=== PATIENT | female | born 1985 | race American Indian/Alaskan Native ===

== ENCOUNTER 2017-10-17 22:53 | Emergency (ER) | payer OTHER ==
[2017-10-17 23:39] VITALS: BP 137/85
--- NOTE | 2017-10-18 00:33 | Emergency Department Report ---
ED Lower Extremity HPI - General Chief Complaint: Medical Clearance Stated Complaint: DRUG TEST Time Seen by Provider: 10/18/17 00:18 Source: patient Mode of arrival: Ambulatory Limitations: No Limitations - History of Present Illness Initial Comments: This is a 32-year-old male nontoxic, well nourished in appearance, no acute signs of distress presents to the ED with c/o of left knee pain status post work related injury. Patient stated is unknown how she developed the abrasion and pain. Patient stated that she did not have any trauma to the head or any other extremities. Patient denies any joint redness, joint swelling, fever, chills, nausea, vomiting, chest pain or shortness breath. Patient denies abnormal or decreased gait. Patient stated she needs a drug screen for work related injury. Patient denies any allergies or PMH. MD Complaint: knee injury Injury: Knee: Left Place: work Severity: mild Severity scale (0 -10): 8 Improves With: immobilization Worsens With: movement, palpation Associated Symptoms: ambulatory. denies: snap/pop sensation, swelling, numbness , tingling, unable to bear weight, able to partially bear weight - Related Data Previous Rx's Medication Instructions Recorded Last Taken Type Ibuprofen [Motrin] 600 mg PO Q8H PRN #30 tablet 10/18/17 Unknown Rx Allergies Allergy/AdvReac Type Severity Reaction Status Date / Time No Known Allergies Allergy Unverified 10/17/17 23:39 ED Review of Systems ROS: Stated complaint: DRUG TEST Other details as noted in HPI Constitutional: denies: chills, fever Eyes: denies: eye pain, eye discharge, vision change ENT: denies: ear pain, throat pain Respiratory: denies: cough, shortness of breath, wheezing Cardiovascular: denies: chest pain, palpitations Endocrine: no symptoms reported Gastrointestinal: denies: abdominal pain, nausea, diarrhea Genitourinary: denies: urgency, dysuria, discharge Musculoskeletal: arthralgia. denies: back pain, joint swelling Skin: denies: rash, lesions Neurological: denies: headache, weakness, paresthesias Psychiatric: denies: anxiety, depression Hematological/Lymphatic: denies: easy bleeding, easy bruising ED Past Medical Hx - Past Medical History Previous Medical History?: No - Surgical History Past Surgical History?: No - Social History Smoking Status: Current Every Day Smoker Substance Use Type: None - Medications Home Medications: Home Medications Medication Instructions Recorded Confirmed Last Taken Type Ibuprofen [Motrin] 600 mg PO Q8H PRN #30 tablet 10/18/17 Unknown Rx ED Physical Exam - General Limitations: No Limitations General appearance: alert, in no apparent distress - Head Head exam: Present: atraumatic, normocephalic - Eye Eye exam: Present: normal appearance Pupils: Present: normal accommodation - ENT ENT exam: Present: normal exam, mucous membranes moist - Neck Neck exam: Present: normal inspection, full ROM. Absent: tenderness, meningismus - Respiratory Respiratory exam: Present: normal lung sounds bilaterally. Absent: respiratory distress - Cardiovascular Cardiovascular Exam: Present: regular rate, normal rhythm. Absent: systolic murmur, diastolic murmur, rubs, gallop - GI/Abdominal GI/Abdominal exam: Present: soft, normal bowel sounds - Extremities Exam Extremities exam: Present: normal inspection, full ROM, normal capillary refill. Absent: tenderness, pedal edema, joint swelling, calf tenderness - Expanded Lower Extremity Exam Left Hip exam: Present: normal inspection, full ROM. Absent: tenderness, swelling Upper Leg exam: Present: normal inspection, full ROM. Absent: tenderness, swelling Knee exam: Present: normal inspection, full ROM, abrasion, full knee extension. Absent: tenderness, swelling, laceration, ecchymosis, deformity, crepidus, dislocation, erythema, effusion, pain w/ pronation/supination, posterior draw sign, pain/laxity with valgus, pain/laxity with varus Lower Leg exam: Present: normal inspection, full ROM. Absent: tenderness, swelling Ankle exam: Present: normal inspection, full ROM. Absent: tenderness, swelling Foot/Toe exam: Present: normal inspection, full ROM. Absent: tenderness, swelling Neuro vascular tendon exam: Present: no vascular compromise. Absent: pulse deficit, abnormal cap refill, motor deficit, sensory deficit, tendon deficit, extremity cold to touch, pallor, abnormal 2-point discrimination, decreased fine /light touch, foot drop, peroneal nerve deficit, significant pain with passive ROM of distal joint Gait: Positive: observed and normal - Back Exam Back exam: Present: normal inspection, full ROM. Absent: tenderness - Neurological Exam Neurological exam: Present: alert, oriented X3, normal gait - Psychiatric Psychiatric exam: Present: normal affect, normal mood - Skin Skin exam: Present: warm, dry, intact, normal color. Absent: rash ED Course Vital Signs 10/17/17 23:34 Temperature 99.1 F Pulse Rate 96 H Blood Pressure 137/85 O2 Sat by Pulse 98 Oximetry - Reevaluation(s) Reevaluation #1: 10/18/17 00:31 Patient is speaking in full sentences with no signs of distress noted. ED Lower Extremity MDM - Medical Decision Making This is a 32-year-old female that presents with left knee strain. Patient is stable and was examined by me. I referred patient to an orthopedic doctor for further evaluation for possible MRI. X-ray was ordered but patient refused as she stated she has no pain and just needs a drug screen done for work. Lab has been contacted for workers comp drug panel from urine and blood. Patient does have normal gait with no tenderness and no joint swelling. No ecchymosis. no joint redness or swelling. Not warm to touch. No signs of cellulites present. Upon exam no knee tenderness of decreased ROM. Patient was instructed to RICE therapy. Patient is discharged with Motrin. At time of discharge, the patient does not seem toxic or ill in appearance. No acute signs of distress noted. Patient agrees to discharge treatment plan of care. No further questions noted by the patient. Critical care attestation.: If time is entered above; I have spent that time in minutes in the direct care of this critically ill patient, excluding procedure time. ED Disposition Clinical Impression: Encounter for drug screening Strain of left knee Qualifiers: Encounter type: initial encounter Qualified Code(s): S86.912A - Strain of unspecified muscle(s) and tendon(s) at lower leg level, left leg, initial encounter Disposition: - TO HOME OR SELFCARE Is pt being admited?: No Does the pt Need Aspirin: No Condition: Stable Instructions: Ibuprofen (By mouth), Knee Pain (ED), RICE Therapy (ED) Additional Instructions: Follow-up with a orthopedic doctor in 3-5 days or if symptoms worsen and continue return to emergency room as soon as possible. Prescriptions: Ibuprofen [Motrin] 600 mg PO Q8H PRN #30 tablet PRN Reason: Pain Referrals: PRIMARY CAREMD [Primary Care Provider] - 3-5 Days EDNA DAVIS MD [Staff Physician] - 3-5 Days [facility] [Outside] - 3-5 Days [facility] [Outside] - 3-5 Days Forms: Work/School Release Form(ED)
== END 2017-10-18 01:17 | disposition home or self-care (01) ==
LOC: ED 22:53
DX: S86.912A Strain of unspecified muscle(s) and tendon(s) at lower leg level, left leg, initial encounter (principal); F17.200 Nicotine dependence, unspecified, uncomplicated; Z13.89 Encounter for screening for other disorder; X58.XXXA Exposure to other specified factors, initial encounter; Y93.89 Activity, other specified; Y99.8 Other external cause status; Y92.89 Other specified places as the place of occurrence of the external cause
CPT/HCPCS: 99281

== ENCOUNTER 2018-09-10 21:26 | Emergency (ER) | payer MEDICAID ==
--- NOTE | 2018-09-10 21:43 | Emergency Department Report ---
Blank Doc - Documentation Documentation: This is a 33-year-old female that presents wit URI symptoms. This initial assessment/diagnostic orders/clinical plan/treatment(s) is/are subject to change based on patient's health status, clinical progression and re- assessment by fellow clinical providers in the ED. Further treatment and workup at subsequent clinical providers discretion. Patient/guardians urged not to elope from the ED as their condition may be serious if not clinically assessed and managed. Initial orders include: 1- Patient sent to [facility] for further evaluation and treatment 2- CXR
[2018-09-10 21:45] VITALS: BP 114/78
--- NOTE | 2018-09-10 22:41 | XRay Report ---
PROCEDURE: XR CHEST ROUTINE 2V TECHNIQUE: PA and lateral chest radiographs were obtained. HISTORY: cough COMPARISONS: None. FINDINGS: Heart: Normal. Mediastinum/Vessels: Normal. Lungs/Pleural space: No infiltrate, effusion, or pneumothorax. Bony thorax: No acute osseous abnormality. IMPRESSION: No pulmonary infiltrates are identified. This document is electronically signed by Lamar Sethi MD., September 10 2018 10:39:33 PM ET
--- NOTE | 2018-09-11 00:48 | Emergency Department Report ---
Minor Respiratory - HPI Chief Complaint: Nausea/Vomiting/Diarrhea Stated Complaint: SWEATS DIZZINES HEADACHE WEAKNESS Time Seen by Provider: 09/10/18 21:42 Duration: 6 days Pain Location: Nose, Chest Severity: moderate Minor Respiratory: Yes Rhinorrhea, Yes Able to Tolerate Fluids, Yes Cough, Yes Sick Contacts, Yes Chest Pain (chest discomfort with cough), Yes Fever, No Sore Throat, No Ear Pain, No Hemoptysis, No Shortness of Breath Other History: This is a 33-year-old -[place] female who presents to the emergency room with upper respiratory symptoms for 6 days. Patient reports myalgia, fever, chills, diarrhea, weakness. Patient states she is currently taken TheraFlu with no improvement of symptoms. She believes she caught so mething from a coworker and can't get rid of it. Patient reports cough is worse with laying down causing chest discomfort. Patient states myalgia has resolved but continued to have of the symptoms. She denies nausea, vomiting, abdominal pain. ED Review of Systems ROS: Stated complaint: SWEATS DIZZINES HEADACHE WEAKNESS Other details as noted in HPI Constitutional: chills, fever, malaise ENT: congestion. denies: ear pain, throat pain Respiratory: cough. denies: shortness of breath, wheezing Cardiovascular: denies: chest pain (chest discomfort with cough), palpitations Gastrointestinal: diarrhea. denies: abdominal pain, nausea Musculoskeletal: myalgia. denies: back pain, joint swelling, arthralgia Skin: denies: rash, lesions Neurological: denies: headache, weakness, paresthesias Psychiatric: denies: anxiety, depression ED Past Medical Hx - Past Medical History Previous Medical History?: No - Surgical History Past Surgical History?: Yes Additional Surgical History: - Social History Smoking Status: Current Every Day Smoker Substance Use Type: Alcohol - Medications Home Medications: Home Medications Medication Instructions Recorded Confirmed Last Taken Type Ibuprofen [Motrin] 600 mg PO Q8H PRN #30 tablet 10/18/17 Unknown Rx Benzonatate [Tessalon Perles] 100 mg PO Q8HR PRN #30 capsule 09/11/18 Unknown Rx Cetirizine HCl [Zyrtec] 10 mg PO DAILY #30 tablet 09/11/18 Unknown Rx Fluticasone [Flonase] 1 spray NS QDAY #1 bottle 09/11/18 Unknown Rx Minor Respiratory Exam - Exam General: Vital signs noted. No distress. Alert and acting appropriately. HEENT: Yes Pharyngeal Erythema (erythematous posterior pharynx, uvula midline), Yes Moist Mucous Membranes, Yes Rhinorrhea (turbinates congested with clear discharge), No Pharyngeal Exudates, No Conjuctival Injection, No Frontal Tenderness, No Maxillary Tenderness Ear: Neither TM Bulge, Neither TM Erythema, Neither EAC Pain, Neither EAC Discharge Neck: Yes Supple, No Adenopathy Lungs: Yes Good Air Exchange, Yes Cough, No Wheezes, No Ronchi, No Stridor, No Labored Respirations, No Retractions, No Use of Accessory Muscles, No Other Abnormal Lung Sounds Heart: Yes Regular, No Murmur Abdomen: Yes Normal Bowel Sounds, No Tenderness, No Peritoneal Signs Skin: No Rash, No Edema Neurologic: Alert and oriented, no deficits. Musculoskeletal: Unremarkable. ED Course Vital Signs 09/10/18 21:43 Temperature 99 F Pulse Rate 97 H Respiratory 18 Rate Blood Pressure 114/78 O2 Sat by Pulse 98 Oximetry ED Medical Decision Making - Medical Decision Making Patient examined by me and stable. No distress noted. Vitals normal. A chest x-ray was obtained and no acute cardiopulmonary findings. Symptoms are susceptible of viral syndrome or influenza. Patient has symptoms for one week, not indicated to test for influenza. She is instructed to take Tylenol or ibuprofen for aches and pains, to drink a lot of liquids to stay home and rest. Start flonase, Tessalon Perles, cetirizine, and ibuprofen. Discharged home stable. Educated on care for viral syndrome. She was given a note to return to work in 3 days. Follow up with Primary Care Provider in 2-3 days. She will return to the emergency room if he does not get better as discussed. Critical care attestation.: If time is entered above; I have spent that time in minutes in the direct care of this critically ill patient, excluding procedure time. ED Disposition Clinical Impression: Viral syndrome, Cough in adult Disposition: DC-01 TO HOME OR SELFCARE Is pt being admited?: No Does the pt Need Aspirin: No Condition: Stable Instructions: Viral Syndrome (ED), Influenza (ED) Additional Instructions: Symptoms are most likely coming from for infection. These infections typically do not give antibiotics. Take ibuprofen every 6 hours alternated with Tylenol every 4 hours pain. You may not feel like eating which is to be expected. Try eating a bland diet as tolerated. Wash hands frequently. F/U with Primary Care Provider. Return to ER if fever, SOB, or difficulty breathing after 48 hours of supportive care. Prescriptions: Fluticasone [Flonase] 1 spray NS QDAY #1 bottle Benzonatate [Tessalon Perles] 100 mg PO Q8HR PRN #30 capsule PRN Reason: Cough Cetirizine HCl [Zyrtec] 10 mg PO DAILY #30 tablet Referrals: ALISHA LANE MD [Primary Care Provider] - 3-5 Days [facility] [Outside] - 3-5 Days [facility] [Outside] - 3-5 Days Forms: Work/School Release Form(ED) Time of Disposition: 01:21
== END 2018-09-11 01:25 | disposition home or self-care (01) ==
LOC: ED 21:26
DX: B34.9 Viral infection, unspecified (principal); F17.200 Nicotine dependence, unspecified, uncomplicated
CPT/HCPCS: 71046; 99283

== ENCOUNTER 2018-12-23 20:28 | Emergency (ER) | payer MEDICAID ==
[2018-12-23 20:37] VITALS: BP 103/61
--- NOTE | 2018-12-23 21:28 | Event Note ---
ED Screening Note Date of service: 12/23/18 Time: 21:07 ED Screening Note: 33 y/o female comes in for back pain times 4 days. Has taking nothing for pain. Worse with certain movement. This initial assessment/diagnostic orders/clinical plan/treatment(s) is/are subject to change based on patients health status, clinical progression and re- assessment by fellow clinical providers in the ED. Further treatment and workup at subsequent clinical providers discretion. Patient/guardian urged not to elope from the ED as their condition may be serious if not clinically assessed and managed. Initial orders include:
[2018-12-23 22:52] LABS: Bacteria,Urine 1+ /HPF (Negative); Bilirubin,Urine NEG (Negative); Blood,Urine NEG (Negative); Color,Urine Yellow (Yellow); Mucus,Urine 3+ /HPF; Protein,Urine <15 mg/dL mg/dL (Negative); Urobilinogen,Urine < 2.0 mg/dL (<2.0)
[2018-12-23] MEDS ORDERED: TYLENOL PO ONE (23:27)
[2018-12-23] MEDS ORDERED: IBUPROFEN PO ONE (23:27)
--- NOTE | 2018-12-24 01:32 | Emergency Department Report ---
ED Back Pain/Injury HPI - General Chief Complaint: Back Pain/Injury Stated Complaint: BACK PAIN Time Seen by Provider: 12/23/18 21:07 Source: patient Limitations: No Limitations - History of Present Illness Initial Comments: Patient is a 33-year-old [place] female who presents to the ED with complaint of acute onset of persistent severe posterior upper and mid thoracic pain that radiates to the lateral shoulders bilaterally for the last 2 days. Patient states that she performs a lot of heavy lifting at work and suspects that these may have been from lifting and bending while walking. Patient denies neck pain, chest pain, shortness of breath, low back pain, dizziness, fall, traumatic injury, change in vision, syncope, or headache, numbness and tingling of the upper extremities bilaterally. MD Complaint: back pain, other (muscle spasm ) -: Sudden, days(s) (2) Similar Symptoms Previously: Yes Place: home Radiation: none Severity: severe Severity scale (0 -10): 7 Quality: sharp, aching Consistency: constant Improves With: none Worsens With: movement, deep breaths/cough Context: while lifting, turning/twisting, bending Associated Symptoms: denies other symptoms. denies: confusion, chest pain, difficulty walking, difficulty urinating, diaphoresis, fever/chills, constipation, abdominal pain, loss of appetite, nausea/vomiting, rash, seizure, syncope Treatments Prior to Arrival: cold therapy - Related Data Previous Rx's Medication Instructions Recorded Last Taken Type Ibuprofen [Motrin] 600 mg PO Q8H PRN #30 tablet 10/18/17 Unknown Rx Benzonatate [Tessalon Perles] 100 mg PO Q8HR PRN #30 capsule 09/11/18 Unknown Rx Cetirizine HCl [Zyrtec 10mg tab] 10 mg PO DAILY #30 tablet 09/11/18 Unknown Rx Fluticasone [Flonase] 1 spray NS QDAY #1 bottle 09/11/18 Unknown Rx Ibuprofen [Motrin] 600 mg PO Q8H PRN #20 tablet 12/24/18 Unknown Rx tiZANidine [Zanaflex 4mg TAB] 4 mg PO Q8H PRN #24 tablet 12/24/18 Unknown Rx traMADol [Ultram] 50 mg PO Q6HR PRN #15 tablet 12/24/18 Unknown Rx Allergies Allergy/AdvReac Type Severity Reaction Status Date / Time No Known Allergies Allergy Verified 12/23/18 20:33 ED Review of Systems ROS: Stated complaint: BACK PAIN Other details as noted in HPI Constitutional: denies: chills, fever Eyes: denies: eye pain, eye discharge, vision change ENT: denies: ear pain, throat pain Respiratory: denies: cough, shortness of breath, SOB with exertion, wheezing Cardiovascular: denies: chest pain, palpitations, dyspnea on exertion, edema, syncope, paroxysmal nocturnal dyspnea Endocrine: no symptoms reported Gastrointestinal: denies: abdominal pain, nausea, vomiting, diarrhea Genitourinary: denies: urgency, dysuria, discharge Musculoskeletal: back pain (Mid-posterior thoracic pain), arthralgia, myalgia. denies: joint swelling Skin: denies: rash, lesions Neurological: denies: headache, weakness, paresthesias Psychiatric: denies: anxiety, depression Hematological/Lymphatic: denies: easy bleeding, easy bruising ED Past Medical Hx - Surgical History Additional Surgical History: - Social History Smoking Status: Never Smoker Substance Use Type: None - Medications Home Medications: Home Medications Medication Instructions Recorded Confirmed Last Taken Type Ibuprofen [Motrin] 600 mg PO Q8H PRN #30 tablet 10/18/17 Unknown Rx Benzonatate [Tessalon Perles] 100 mg PO Q8HR PRN #30 capsule 09/11/18 Unknown Rx Cetirizine HCl [Zyrtec 10mg tab] 10 mg PO DAILY #30 tablet 09/11/18 Unknown Rx Fluticasone [Flonase] 1 spray NS QDAY #1 bottle 09/11/18 Unknown Rx Ibuprofen [Motrin] 600 mg PO Q8H PRN #20 tablet 12/24/18 Unknown Rx tiZANidine [Zanaflex 4mg TAB] 4 mg PO Q8H PRN #24 tablet 12/24/18 Unknown Rx traMADol [Ultram] 50 mg PO Q6HR PRN #15 tablet 12/24/18 Unknown Rx ED Physical Exam - General Limitations: No Limitations General appearance: alert, in no apparent distress - Head Head exam: Present: atraumatic, normocephalic, normal inspection - Eye Eye exam: Present: normal appearance, PERRL, EOMI. Absent: scleral icterus, conjunctival injection, nystagmus Pupils: Present: normal accommodation - ENT ENT exam: Present: normal exam, normal orophraynx, mucous membranes moist, TM's normal bilaterally, normal external ear exam - Neck Neck exam: Present: normal inspection, full ROM. Absent: tenderness, meningismus, lymphadenopathy, thyromegaly - Respiratory Respiratory exam: Present: normal lung sounds bilaterally. Absent: respiratory distress, wheezes, rales, rhonchi, chest wall tenderness, accessory muscle use, decreased breath sounds, prolonged expiratory - Cardiovascular Cardiovascular Exam: Present: normal rhythm, tachycardia, normal heart sounds. Absent: systolic murmur, diastolic murmur, rubs, gallop - GI/Abdominal GI/Abdominal exam: Present: soft, normal bowel sounds. Absent: tenderness, g uarding, rebound, hyperactive bowel sounds, hypoactive bowel sounds, mass - Rectal Rectal exam: Present: deferred - Extremities Exam Extremities exam: Present: normal inspection, full ROM, normal capillary refill. Absent: pedal edema, joint swelling - Back Exam Back exam: Present: normal inspection, full ROM, tenderness (Palpable posterior upper thoracic paraspinal musculoskeletal tenderness), muscle spasm, paraspinal tenderness - Neurological Exam Neurological exam: Present: alert, oriented X3, CN II-XII intact, normal gait, reflexes normal - Psychiatric Psychiatric exam: Present: normal affect, normal mood - Skin Skin exam: Present: warm, dry, intact, normal color. Absent: rash ED Course Vital Signs 12/23/18 20:35 Temperature 98.2 F Pulse Rate 103 H Respiratory 16 Rate Blood Pressure 103/61 O2 Sat by Pulse 94 Oximetry - Reevaluation(s) Reevaluation #1: 12/24/18 02:01 This is a 33-year-old female who presented to ED with upper back pain after heavy lifting at work. In the ED, patient is alert and oriented 3 and is not in distress, resting comfortably during the physical exam. T-spine x-ray shows no acute fractures or subluxations. Patient was discharged home on pain medications and muscle relaxants and advised to follow-up with her primary care physician in 5-7 days for reevaluation or return to the ED immediately if symptoms get worse. ED Medical Decision Making - Radiology Data Radiology results: image reviewed interpreted by me: T-spine x-ray shows no acute fractures or subluxations - Medical Decision Making This is a 33-year-old female who presented to ED with upper back pain after heavy lifting at work. In the ED, patient is alert and oriented 3 and is not in distress, resting comfortably during the physical exam. T-spine x-ray shows no acute fractures or subluxations. Patient was discharged home on pain medications and muscle relaxants and advised to follow-up with her primary care physician in 5-7 days for reevaluation or return to the ED immediately if symptoms get worse. - Differential Diagnosis Muscle spasm of back; Muscle strain of posterior upper and mid thorax Critical care attestation.: If time is entered above; I have spent that time in minutes in the direct care of this critically ill patient, excluding procedure time. ED Disposition Clinical Impression: Spasm of thoracic back muscle, Strain of muscle and tendon of back wall of thorax, initial encounter Disposition: TO HOME OR SELFCARE Is pt being admited?: No Does the pt Need Aspirin: No Condition: Stable Instructions: Muscle Strain (ED), Muscle Spasm (ED), Back Pain (ED) Additional Instructions: Take medications with food, drink plenty of fluids and follow up with your primary care physician in 7-10 days for reevaluation. Return to the ED immediately if symptoms get worse. Prescriptions: Ibuprofen [Motrin] 600 mg PO Q8H PRN #20 tablet PRN Reason: Pain traMADol [Ultram] 50 mg PO Q6HR PRN #15 tablet PRN Reason: Pain tiZANidine [Zanaflex 4mg TAB] 4 mg PO Q8H PRN #24 tablet PRN Reason: Spasms Referrals: [facility] [Outside] - 3-5 Days Forms: Work/School Release Form(ED) Time of Disposition: 01:35 Print Language: WOLOF
--- NOTE | 2018-12-24 02:48 | XRay Report ---
Thoracic spine, 3 views INDICATION:Back pain FINDINGS: The vertebral body heights and disc spaces are intact. No fracture or subluxation. No signi ficant spurring or arthritic change. No bone lesions or paraspinal masses. No significant abnormality . IMPRESSION: Negative thoracic spine Signer Name: Joshua Luu MD Signed: 12/24/2018 2:44 AM Workstation Name: [id number]
== END 2018-12-24 01:52 | disposition home or self-care (01) ==
LOC: ED 20:28
DX: S29.012A Strain of muscle and tendon of back wall of thorax, initial encounter (principal); Z79.899 Other long term (current) drug therapy; X50.0XXA Overexertion from strenuous movement or load, initial encounter; Y93.89 Activity, other specified; Y92.89 Other specified places as the place of occurrence of the external cause; Y99.8 Other external cause status
CPT/HCPCS: 72072; 81001

== ENCOUNTER 2019-05-05 15:54 | Emergency (ER) | payer MEDICAID ==
[2019-05-05] MEDS ORDERED: IBUPROFEN 800 MG TAB PO ONE (19:30)
[2019-05-05] MEDS ORDERED: guaiFENesin 100 MG/5 ML ORAL LIQD PO ONE (19:30)
--- NOTE | 2019-05-05 19:30 | Emergency Department Report ---
Minor Respiratory - HPI Chief Complaint: Upper Respiratory Infection Stated Complaint: COUGHING/BODY ACHE Time Seen by Provider: 05/05/19 19:28 Duration: 2 Days Severity: mild Minor Respiratory: Yes Rhinorrhea, Yes Able to Tolerate Fluids, Yes Cough, Yes Fever, No Sore Throat, No Ear Pain, No Sick Contacts, No Hemoptysis, No Chest Pain, No Shortness of Breath Other History: This 34-year-old female presents here to ED complaining of of upper respiratory symptoms. Patient reports cough and intermittently, low-grade fever. ED Review of Systems ROS: Stated complaint: COUGHING/BODY ACHE Other details as noted in HPI Comment: All other systems reviewed and negative ED Past Medical Hx - Past Medical History Previous Medical History?: No - Surgical History Past Surgical History?: Yes Additional Surgical History: - Social History Smoking Status: Never Smoker Substance Use Type: None - Medications Home Medications: Home Medications Medication Instructions Recorded Confirmed Last Taken Type Ibuprofen [Motrin] 600 mg PO Q8H PRN #30 tablet 10/18/17 Unknown Rx Cetirizine HCl [Zyrtec 10mg tab] 10 mg PO DAILY #30 tablet 09/11/18 Unknown Rx Fluticasone [Flonase] 1 spray NS QDAY #1 bottle 09/11/18 Unknown Rx Ibuprofen [Motrin] 600 mg PO Q8H PRN #20 tablet 12/24/18 Unknown Rx tiZANidine [Zanaflex 4mg TAB] 4 mg PO Q8H PRN #24 tablet 12/24/18 Unknown Rx traMADoL [Ultram] 50 mg PO Q6HR PRN #15 tablet 12/24/18 Unknown Rx Benzonatate [Tessalon Perles] 100 mg PO Q8HR PRN #30 capsule 05/05/19 Unknown Rx Ibuprofen [Motrin] 800 mg PO Q8HR #30 tablet 05/05/19 Unknown Rx Minor Respiratory Exam - Exam General: Vital signs noted. No distress. Alert and acting appropriately. HEENT: Yes Moist Mucous Membranes, No Pharyngeal Erythema, No Pharyngeal Exudates, No Rhinorrhea, No Conjuctival Injection, No Frontal Tenderness, No Maxillary Tenderness Ear: Neither TM Bulge, Neither TM Erythema, Neither EAC Pain, Neither EAC Discharge Neck: Yes Supple, No Adenopathy Lungs: Yes Good Air Exchange, No Wheezes, No Ronchi, No Stridor, No Cough, No Labored Respirations, No Retractions, No Use of Accessory Muscles, No Other Abnormal Lung Sounds Heart: Yes Regular, No Murmur Abdomen: Yes Normal Bowel Sounds, No Tenderness, No Peritoneal Signs Skin: No Rash, No Edema Neurologic: Alert and oriented, no deficits. Musculoskeletal: Unremarkable. ED Medical Decision Making - Medical Decision Making 34 year-old female presents with upper respiratory symptoms. Low-grade Fever during the ED stay. Discussed with mother symptomatic relief with [id number] medications. Discussed continue Tylenol and Motrin as needed for fever and pain. Discussed increase fluids and diet intake. Vital signs stable. Patient is in no acute distress, bustillo is in no versus or distress. Critical care attestation.: If time is entered above; I have spent that time in minutes in the direct care of this critically ill patient, excluding procedure time. ED Disposition Clinical Impression: Upper respiratory infection Disposition: DC- TO HOME OR SELFCARE Is pt being admited?: No Does the pt Need Aspirin: No Condition: Stable Instructions: Viral Syndrome (ED) Additional Instructions: Make sure to follow up with the primary care physician as discussed. Take all your medications as you've been prescribed. If you have any worsening symptoms or develop new symptoms please return to ED immediately. Prescriptions: Ibuprofen [Motrin] 800 mg PO Q8HR #30 tablet Benzonatate [Tessalon Perles] 100 mg PO Q8HR PRN #30 capsule PRN Reason: Cough Referrals: [facility] [Outside] - 3-5 Days [facility] [Outside] - 3-5 Days Forms: Work/School Release Form(ED) Time of Disposition: 20:03
[2019-05-05 21:11] VITALS: BP 125/68
== END 2019-05-05 20:30 | disposition home or self-care (01) ==
LOC: ED 15:54
DX: J06.9 Acute upper respiratory infection, unspecified (principal); Z79.899 Other long term (current) drug therapy